=== PATIENT | female | born 1940 | race Caucasian/White ===

== ENCOUNTER 2017-06-17 10:40 | Outpatient (CLI) | payer OTHER | END 2017-06-17 10:41 | disposition home or self-care (01) | LOC: BICMAMMO 10:40 | PROVIDERS: ATTEND Family Medicine | DX: Z12.31 Encounter for screening mammogram for malignant neoplasm of breast (principal) | CPT/HCPCS: 77063; 77067 ==

== ENCOUNTER 2017-11-08 16:32 | Emergency (ER) | payer OTHER ==
[~2017-11-08 16:32] MED LIST: ISOVUE-370 76%-LOCM 1 ML ONE
--- NOTE | 2017-11-08 18:31 | CT ---
CT CHEST WITHOUT CONTRAST CT ABDOMEN WITHOUT CONTRAST CT PELVIS WITHOUT CONTRAST 11/08/17 HISTORY: Fall. COMPARISON: CT abdomen and pelvis 2011. FINDINGS: 4 mm nodule right upper lobe. There is also a 3 mm nodule in the right middle lobe in two different a reas. No pneumothorax or effusion. Some scarring in the left lower lobe. Thyroid is unremarkable. No mediastinal adenopathy. Small pretracheal 6 mm lymph node present. No pericardial effusion. Sternum and manubrium are intact. No acute displaced rib fracture. Mild pectus excavatum. There are superior end plate fractures of T11 and T12 extending to the anterior vertebral body approx imately 10% height loss of each. No extension to the posterior vertebral body is appreciated. No retr opulsion. No posterior element involvement. Visualized clavicles are intact. No transverse process of the lumbar or thoracic spine fracture. Moderate degenerative changes of the right hip. No sacral or pelvic fracture. No free fluid in the abdomen or pelvis. The right renal mass is not significantly increased in size a nd there does appear to be some internal fat. 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 Oncocytoma is also a possibility. No renal laceration. No acute splenic or liver injury nor pancreas or retroperitoneal injury. Moderate diverticular disease sigmoid colon without active current inflammation. The L4 area of sclerosis likely a bone island, unchanged. IMPRESSION: 1. Acute T11 and T12 compression fractures approximately 10-15% anterior height loss without ext ension to the posterior vertebral body nor retropulsion. Also possible anterior superior end plate fr acture of L1 although not definitive. 2. Similar appearance of the right renal mass which may have some internal fat density and has n ot increased in size to the comparison exam and likely angiomyolipoma. 3. No other acute traumatic abnormality in chest, abdomen or pelvis. 4. Small sub 4 mm pulmonary nodules are nonspecific. Code KAVEH Reyes 6:10 p.m. POS: [facility]
== END 2017-11-08 18:45 | disposition home or self-care (01) ==
LOC: ERS 16:32
DX: S22.089A Unspecified fracture of T11-T12 vertebra, initial encounter for closed fracture (principal); I48.91 Unspecified atrial fibrillation; I10 Essential (primary) hypertension; Z79.899 Other long term (current) drug therapy; W22.8XXA Striking against or struck by other objects, initial encounter
CPT/HCPCS: 71260; 74177; 82565

== ENCOUNTER 2017-12-04 10:50 | Outpatient (CLI) | payer OTHER ==
--- NOTE | 2017-12-04 12:22 | RAD ---
THORACIC SPINE THREE VIEWS: HISTORY: Follow-up fractures. CORRELATION: CT thoracolumbar spine from 11/08/2017. This exam was performed following trauma, and mild compressi on fractures were described on this exam, involving the T11 and T12 vertebrae. Mild anterior wedging and superior endplate compression were seen on this exam. FINDINGS: On today's exam, there is mild wedging of the T12 vertebra, which may have slightly progressed when c ompared to the CT of 11/08/2017, with mild loss of anterior height. Posterior alignment is preserved , and there is no retropulsion. No evidence of significant compression apparent on today's exam, at T11 or at L1. The other thoracic vertebrae maintain height. There are mild to moderate degenerative changes again noted. IMPRESSION: 1. There is anterior wedge deformity involving the T12 vertebra, which has progressed slightly since the CT of 11/08/2017. 2. Anterior height loss estimated in the 10% to 15% range. POS: [facility]
== END 2017-12-04 10:51 | disposition home or self-care (01) ==
LOC: TBSIIMAG 10:50
PROVIDERS: ATTEND Neurological Surgery
DX: S22.008A Other fracture of unspecified thoracic vertebra, initial encounter for closed fracture (principal); M43.9 Deforming dorsopathy, unspecified
CPT/HCPCS: 72072

== ENCOUNTER 2017-12-31 14:27 | Outpatient (CLI) | payer OTHER ==
--- NOTE | 2017-12-31 15:38 | RAD ---
THORACIC SPINE 3 VIEWS: Date: 12/31/17 HISTORY: 77-year-old female with S22.008A, thoracic spine fractures. COMPARISON: 12/04/17. FINDINGS: There is probably very slightly progressive vertical height loss of the anterior aspect of the T12 ve rtebral body and very slight vertical height loss of the anterior superior aspect of the T11 vertebra l body, although this appears stable. No evidence for acute or new fracture. IMPRESSION: Less than 50% vertical height fracture of anterior superior aspect of the T12 vertebral body, slightl y progressive from prior study. Very mild superior end plate depression of T11, stable. POS: [facility]
== END 2017-12-31 14:28 | disposition home or self-care (01) ==
LOC: TBSIIMAG 14:27
PROVIDERS: ATTEND Neurological Surgery
DX: S22.008A Other fracture of unspecified thoracic vertebra, initial encounter for closed fracture (principal)
CPT/HCPCS: 72072

== ENCOUNTER 2018-02-12 11:01 | Outpatient (CLI) | payer OTHER ==
--- NOTE | 2018-02-12 11:51 | RAD ---
THORACIC SPINE FRONTAL AND LATERAL IMAGIN02/12/2018 HISTORY: Fall. Compression fracture. COMPARISON: 12/31/2017 FINDINGS: The thoracic pedicles appear intact on the frontal examination. There is an anterior wedge compression fracture/superior endplate fracture of the T12 vertebral body. There has been no significant interval change in the anterior wedging, which is less than 50%. No new fracture is seen. IMPRESSION: Stable anterior wedge compression fracture/superior endplate fracture of T12. No new fracture seen. POS: [facility]
--- NOTE | 2018-02-12 13:26 | RAD ---
LUMBAR SPINE: Indications: Follow up compression fracture. Comparison: Thoracic spine films from 12-31-17. Correlation is also made to a CT of the abdomen and pe lvis of 09-23-11. FINDINGS: On the comparison, there is an anterior wedge compression deformity at T12 and is again seen. There i s compression of the superior endplate with anterior wedging. A loss of anterior height is estimated in the 10-20% range. This appears table. Lumbar vertebrae maintain normal height and alignment. There is a focal area of rounded sclerosis inv olving the L4 vertebra to the left of midline. This was noted on the CT scan of 2011 and would theref ore indicate a benign bone island. Mild degenerative changes of the lumbar spine. The disc spaces are preserved. Mild facet hypertrophy. IMPRESSION: 1. Mild degenerative changes of the lumbar spine. There is a benign bone island at L4. 2. Anterior compression at T12 appears stable. POS: [facility]
== END 2018-02-12 11:02 | disposition home or self-care (01) ==
LOC: TBSIIMAG 11:01
PROVIDERS: ATTEND Neurological Surgery
DX: S22.008A Other fracture of unspecified thoracic vertebra, initial encounter for closed fracture (principal); M47.816 Spondylosis without myelopathy or radiculopathy, lumbar region; M43.8X4 Other specified deforming dorsopathies, thoracic region
CPT/HCPCS: 72072; 72100

== ENCOUNTER 2018-05-29 14:47 | Outpatient (CLI) | payer OTHER ==
--- NOTE | 2018-05-29 15:23 | RAD ---
3 VIEWS THORACIC SPINE: Date: 05/29/18 COMPARISON: Lumbar spine radiograph dated 02/12/18. HISTORY: Low back and mid back pain. History of injury to T11 and T12. FINDINGS: Three views of the thoracic spine show wedge compression deformity of the T12 vertebral body. This is unchanged compared to the prior examination. The other thoracic vertebral bodies demonstrate normal height. No subluxation is seen. Small osteophytes are seen throughout the thoracic spine. IMPRESSION: Stable wedge fracture of T12. POS: [facility]
--- NOTE | 2018-05-29 15:25 | RAD ---
2 VIEWS LUMBOSACRAL SPINE: Date: 05/29/18 COMPARISON: 02/12/18. HISTORY: Low back and mid back pain. Previous compression fracture of T11 and T12. FINDINGS: Two views of the lumbosacral spine were performed. There is stable wedge compression deformity of the T12 vertebral body with approximately 40% height loss. There is a stable well circumscribed scleroti c lesion at the L4 vertebral body. The lumbar vertebral bodies demonstrate normal height without frac ture or subluxation. Small osteophytes are seen throughout the lumbar spine. No significant change escobar s occurred compared to the prior exam. IMPRESSION: Stable exam. POS: [facility]
== END 2018-05-29 14:48 | disposition home or self-care (01) ==
LOC: BICRAD 14:47
PROVIDERS: ATTEND Neurological Surgery
DX: M54.5 Low back pain (principal); S22.080A Wedge compression fracture of T11-T12 vertebra, initial encounter for closed fracture
CPT/HCPCS: 72070; 72100

== ENCOUNTER 2018-06-19 10:37 | Outpatient (CLI) | payer OTHER ==
--- NOTE | 2018-06-19 13:41 | MMO ---
Bilateral MAMMO Bilat Screen [facility]. CLINICAL HISTORY: Patient is 78 years old and is seen for screening. The patient has no family history of breast cancer. The patient has no personal history of cancer. VIEWS: The views performed were: bilateral craniocaudal with tomosynthesis and bilateral mediolateral oblique with tomosynthesis. FILMS COMPARED: The present examination has been compared to prior imaging studies performed at [facility] on 06/17/2017, and at [facility] on 05/19/2015 and 06/13/2016. MAMMOGRAM FINDINGS: There are scattered fibroglandular densities. There are no suspicious masses, suspicious calcifications, or new areas of architectural distortion. IMPRESSION: THERE IS NO MAMMOGRAPHIC EVIDENCE OF MALIGNANCY. A ROUTINE FOLLOW-UP MAMMOGRAM IN 1 YEAR IS RECOMMENDED. THE RESULTS OF THIS EXAM WERE SENT TO THE PATIENT. ACR BI-RADS Category 1 - Negative MAMMOGRAPHY NOTE: 1. A negative mammogram report should not delay a biopsy if a dominant of clinically suspicious mass is present. 2. Approximately 10% to 15% of breast cancers are not detected by mammography. 3. Adenosis and dense breasts may obscure an underlying neoplasm.
== END 2018-06-19 10:38 | disposition home or self-care (01) ==
LOC: BICMAMMO 10:37
PROVIDERS: ATTEND Family Medicine
DX: Z12.31 Encounter for screening mammogram for malignant neoplasm of breast (principal)
CPT/HCPCS: 77063; 77067

== ENCOUNTER 2018-11-28 07:43 | Outpatient (CLI) | payer OTHER ==
--- NOTE | 2018-11-28 10:38 | ULT ---
GALLBLADDER ULTRASOUND: HISTORY: Right upper quadrant pain. COMPARISON: A 11/08/2017 CT study. FINDINGS: Real-time imaging of the right upper quadrant shows a normal-appearing gallbladder. The common duct i s 4 mm. The liver measures 12 cm in length. This shows no focal abnormalities. The pancreas is fairly well visualized and unremarkable. The right kidney shows an irregular contour and a mass involving the mid to lower pole regions, somew hat ill-defined and of mixed echogenicity. The borders of this are difficult to define, but I would estimate it at 4.2 x 4.7 cm. It is similar to the previous CT study. IMPRESSION: 1. No evidence of gallstones. 2. Stable right renal mass. POS: [facility]
== END 2018-11-28 07:44 | disposition home or self-care (01) ==
LOC: BICULT 07:43
PROVIDERS: ATTEND Internal Medicine Cardiovascular Disease
DX: R10.11 Right upper quadrant pain (principal); N28.89 Other specified disorders of kidney and ureter
CPT/HCPCS: 76705

== ENCOUNTER 2019-02-04 11:00 | Outpatient (CLI) | payer OTHER ==
--- NOTE | 2019-02-04 12:54 | RAD ---
PA AND LATERAL CHEST: HISTORY: Cough. FINDINGS: The heart size is borderline. The aorta is tortuous. The lungs are well expanded without lobar consol idation, pneumothoraces or pleural effusions. There are degenerative changes in the spine. IMPRESSION: No acute process. POS: [facility]
== END 2019-02-04 11:01 | disposition home or self-care (01) ==
LOC: BICRAD 11:00
PROVIDERS: ATTEND Family Medicine
DX: R05 Cough (principal)
CPT/HCPCS: 36415; 71046; 80053; 80061; 82306; 85025

== ENCOUNTER 2019-09-18 10:28 | Outpatient (CLI) | payer OTHER ==
--- NOTE | 2019-09-18 11:05 | MMO ---
Bilateral MAMMO Bilat Screen [facility]. CLINICAL HISTORY: Patient is 79 years old and is seen for screening. The patient has no family history of breast cancer. The patient has no personal history of cancer. VIEWS: The views performed were: bilateral craniocaudal with tomosynthesis and bilateral mediolateral oblique with tomosynthesis. FILMS COMPARED: The present examination has been compared to prior imaging studies performed at [facility] on 06/17/2017 and 06/19/2018, and at [facility] on 05/19/2015 and 06/13/2016. This study has been interpreted with the assistance of computer-aided detection. MAMMOGRAM FINDINGS: There are scattered fibroglandular densities. There is an asymmetry seen in the CC view only seen in the inner region of the right breast. In the left breast, there are no suspicious masses, calcifications or areas of architectural distortion. IMPRESSION: ASYMMETRY IN THE RIGHT BREAST REQUIRES ADDITIONAL EVALUATION. RECOMMEND DIAGNOSTIC MAMMOGRAM. ULTRASOUND MAY ALSO PROVE USEFUL AT RECALL. THE RESULTS OF THIS EXAM WERE SENT TO THE PATIENT. ACR BI-RADS Category 0 - Incomplete: Need additional imaging evaluation. [facility] will notify the patient of the need for additional imaging services. MAMMOGRAPHY NOTE: 1. A negative mammogram report should not delay a biopsy if a dominant of clinically suspicious mass is present. 2. Approximately 10% to 15% of breast cancers are not detected by mammography. 3. Adenosis and dense breasts may obscure an underlying neoplasm. Reported by: CASPER ELISE MD Electonically Signed: [id number]
== END 2019-09-18 10:29 | disposition home or self-care (01) ==
LOC: BICMAMMO 10:28
PROVIDERS: ATTEND Family Medicine
DX: Z12.31 Encounter for screening mammogram for malignant neoplasm of breast (principal); N64.89 Other specified disorders of breast
CPT/HCPCS: 77063; 77067

== ENCOUNTER 2019-09-22 10:08 | Outpatient (CLI) | payer OTHER ==
--- NOTE | 2019-09-22 10:52 | MMO ---
Right Breast MAMMO Unilat Diag [facility]. CLINICAL HISTORY: Patient is 79 years old and is seen for additional evaluation requested from prior study. The patient has no family history of breast cancer. The patient has no personal history of cancer. VIEWS: The views performed were: right craniocaudal spot compression with tomosynthesis; right mediolateral with tomosynthesis; right rolled lateral with tomosynthesis; and right rolled medial with tomosynthesis. FILMS COMPARED: The present examination has been compared to prior imaging studies performed at [facility] on 06/17/2017, 06/19/2018, 09/18/2019 and 09/22/2019. This study has been interpreted with the assistance of computer-aided detection. MAMMOGRAM FINDINGS: There are scattered fibroglandular densities. Additional views were performed. The previously seen abnormality is not definitely seen on the current study. US is negative. There are no suspicious masses, suspicious calcifications, or new areas of architectural distortion. IMPRESSION: THERE IS NO MAMMOGRAPHIC EVIDENCE OF MALIGNANCY. A ROUTINE FOLLOW-UP MAMMOGRAM IN 1 YEAR IS RECOMMENDED. THE RESULTS OF THIS EXAM WERE SENT TO THE PATIENT. ACR BI-RADS Category 2 - Benign finding MAMMOGRAPHY NOTE: 1. A negative mammogram report should not delay a biopsy if a dominant of clinically suspicious mass is present. 2. Approximately 10% to 15% of breast cancers are not detected by mammography. 3. Adenosis and dense breasts may obscure an underlying neoplasm. Reported by: PK ANTHONY MD Electonically Signed: [id number]
--- NOTE | 2019-09-22 11:15 | ULT ---
RIGHT BREAST ULTRASOUND: Date: 09/22/2019 HISTORY: Abnormal mammogram of 09/18/2019. FINDINGS: Correlation is made with mammograms of 09/18/2019 and 09/22/2019. Sonographic evaluation of the right inner breast demonstrates no abnormality. IMPRESSION: BI-RADS Category 2 - Benign findings. Return to annual mammographic screening. POS: [facility]
== END 2019-09-22 10:09 | disposition home or self-care (01) ==
LOC: BICMAMMO 10:08
PROVIDERS: ATTEND Family Medicine
DX: R92.2 Inconclusive mammogram (principal)
CPT/HCPCS: G0279

== ENCOUNTER 2019-12-04 07:04 | Outpatient (CLI) | payer OTHER ==
--- NOTE | 2019-12-04 08:02 | ULT ---
ULTRASOUND ABDOMEN COMPLETE: DATE: 12/04/2019 HISTORY: Right upper quadrant abdominal pain in 79-year-old female FINDINGS: Gallbladder: Normal wall thickness. No gallstones or sludge identified. No pericholecystic fluid. Liver: Normal parenchymal echogenicity. Bilateral kidneys: No hydronephrosis. Lobular, heterogeneously hyperechoic mass protruding exophytica lly from lower pole of right kidney measures approximately 6 x 5.5 x 5.5 cm. This was present as far back as renal ultrasound 07/28/2009. It may have slightly grown since that time, but it is stable c ompared to 09/01/2018.. Pancreas: Nonspecific sonographic appearance. Tail obscured by shadowing from bowel gas. Common duct caliber: 4 mm. Abdominal aorta: No aneurysm Inferior vena cava: Unremarkable where visualized. 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 If there is clinical concern for hemorrhagic complication, CT should be considered. 2) no other abnormality
== END 2019-12-04 07:05 | disposition home or self-care (01) ==
LOC: BICULT 07:04
PROVIDERS: ATTEND Family Medicine
DX: R10.11 Right upper quadrant pain (principal); D17.71 Benign lipomatous neoplasm of kidney; D30.01 Benign neoplasm of right kidney
CPT/HCPCS: 93975

== ENCOUNTER 2021-04-28 08:04 | Emergency (ER) | payer BC ==
[2021-04-28 09:04] LABS: #Eosinphils 0.2 thou/uL (0.0-0.7); #Monocytes 0.7 thou/uL (0.11-0.59); #Neutrophils 6.6 thou/uL (1.40-6.50); %Basophils 0.2 % (0.0-1.0); %Eosinophils 2.2 % (0.0-10.0); %Lymphocytes 11.4 % (21.0-51.0); %Monocytes 7.7 % (0.0-10.0); %Neutrophils 78.4 % (42.0-75.0); Hemoglobin 13.5 g/dL (12.0-16.0); Mean Corpuscular HGB CONC 32.8 g/dL (32.0-36.0); Mean Corpuscular Hemoglobin 30.8 pg (27.0-31.0); Mean Corpuscular Volume 93.9 fL (78.0-98.0); Mean Platelet Volume 7.3 fL (7.4-10.4); Platelet Count 307 thou/uL (130-400); RBC Distribution Width 12.5 % (11.5-14.5); Red Blood Cell (RBC) Count 4.38 mill/uL (4.20-5.40); White Blood Cell (WBC) Count 8.4 thou/uL (4.8-10.8)
[2021-04-28 09:27] LABS: ALT (SGPT) 10 U/L (8-55); AST (SGOT) 17 U/L (5-34); Albumin 4.2 g/dL (3.4-4.8); Alkaline Phosphatase 77 U/L (40-110); Anion Gap 12 mmol/L (10-20); BUN (Urea Nitrogen) 16 mg/dL (9.8-20.1); Calc. Creatinine Clearance 0 mL/min (70-130); Calcium 9.8 mg/dL (7.8-10.44); Carbon Dioxide 22 mmol/L (23-31); Chloride 101 mmol/L (98-107); Globulin 3.2 g/dL (2.4-3.5); Glucose 103 mg/dL (83-110); Lipase 23 U/L (8-78); Potassium 4.2 mmol/L (3.5-5.1); Protein, Total 7.4 g/dL (5.8-8.1); Sodium 131 mmol/L (136-145)
[2021-04-28] MEDS ORDERED: Iopamidol-370 76% 500 ML 1 ML ONE (11:08)
[2021-04-28 13:01] LABS: Bilirubin Negative (Negative); Blood, Urine Negative (Negative); Clarity Clear (Clear); Glucose, Urine (Dipstick) Normal (Negative); Ketone, Urine Negative (Negative); Leukocyte Negative Leu/uL (Negative); Nitrite Negative (Negative); Protein, Urine (Dipstick) Negative (Neg-Trace); Specific Gravity, Urine 1.014 (1.002-1.036); Urobilinogen Normal mg/dL (Less than 2); pH, Urine 6.5 (5.0-9.0)
== END 2021-04-28 14:40 | disposition home or self-care (01) ==
LOC: ERS 08:04
DX: R10.9 Unspecified abdominal pain (principal); Z79.899 Other long term (current) drug therapy; I48.91 Unspecified atrial fibrillation; I10 Essential (primary) hypertension
CPT/HCPCS: 36415; 74177; 80053; 81003; 83690; 85025; Q9967

== ENCOUNTER 2021-09-21 11:08 | Outpatient (CLI) | payer BC | END 2021-09-21 11:09 | disposition home or self-care (01) | LOC: BICMAMMO 11:08 | PROVIDERS: ATTEND Family Medicine | DX: Z12.31 Encounter for screening mammogram for malignant neoplasm of breast (principal) | CPT/HCPCS: 77063; 77067 ==

== ENCOUNTER 2022-04-23 10:18 | Outpatient (CLI) | payer BC | END 2022-04-23 10:19 | disposition home or self-care (01) | LOC: BICMAMMO 10:18 | PROVIDERS: ATTEND Family Medicine | DX: Z13.820 Encounter for screening for osteoporosis (principal); Z78.0 Asymptomatic menopausal state; M85.88 Other specified disorders of bone density and structure, other site | CPT/HCPCS: 77080 ==

== ENCOUNTER 2022-12-31 11:22 | Outpatient (CLI) | payer BC | END 2022-12-31 11:23 | disposition home or self-care (01) | LOC: BICMAMMO 11:22 | PROVIDERS: ATTEND Family Medicine | DX: Z12.31 Encounter for screening mammogram for malignant neoplasm of breast (principal) | CPT/HCPCS: 77063; 77067 ==

== ENCOUNTER 2023-09-10 07:39 | Inpatient (IN) | payer MEDICARE, OTHER ==
[2023-09-09 10:06] VITALS: BMI 24.9
[2023-09-10] MEDS ORDERED: SUGAMMADEX SODIUM 200 MG/2 ML VIAL ONE (08:02)
[2023-09-10] MEDS ORDERED: Ondansetron PF 4 MG/2 ML Vial ONE (08:02)
[2023-09-10] MEDS ORDERED: Dexamethasone 4 mg/ml Vial ONE (08:02)
[2023-09-10] MEDS ORDERED: fentaNYL 50 mcg/mL 1 mL Vial ONE ×2 (08:03→11:16)
[2023-09-10] MEDS ORDERED: Phenylephrine 10 MG/ML VIAL ONE (08:03)
[2023-09-10] MEDS ORDERED: PROPOFOL 20 ML ONE (08:03)
[2023-09-10] MEDS ORDERED: Lidocaine 1% PF 5 ML VIAL ONE (08:03)
[2023-09-10] MEDS ORDERED: Rocuronium Bromide 10 MG/ML (10ML VIAL) ONE (08:03)
[2023-09-10] MEDS ORDERED: Heparin 10,000 UNITS/ 10 ML VIAL ONE (08:27)
[2023-09-10] MEDS ORDERED: CEFAZOLIN 2 GM VIAL ONE (08:27)
[2023-09-10] MEDS ORDERED: Protamine Sulfate 50 MG/5 ML VIAL ONE (08:27)
[2023-09-10] MEDS ORDERED: Lidocaine 1% MPF 2 ML VIAL ONE (08:35)
[2023-09-10] MEDS ORDERED: Lisinopril 10 MG TAB ONE (12:17)
[2023-09-10] MEDS ORDERED: Metoprolol Tartrate 25 MG TAB PO SCH (12:30)
[2023-09-10] MEDS ORDERED: hydrALAZINE 20 MG/ML VIAL SLOW IVP PRN (12:37)
[2023-09-10] MEDS ORDERED: Lisinopril 10 MG TAB PO SCH (12:45)
[2023-09-10] MEDS ORDERED: HYDROcodone/Acetaminophen 5/325 mg Tablet PO PRN ×2 (12:45)
[2023-09-10] MEDS ORDERED: Acetaminophen 325 MG TAB PO PRN (12:45)
[2023-09-10] MEDS ORDERED: hydrALAZINE 20 MG/ML VIAL ONE (14:18)
== END 2023-09-10 17:26 | disposition home or self-care (01) | DRG 274 ==
LOC: SURG A 07:39
PROVIDERS: ADMIT Internal Medicine Cardiovascular Disease; ATTEND Internal Medicine Cardiovascular Disease
PROC: 02L73DK Occlusion of Left Atrial Appendage with Intraluminal Device, Percutaneous Approach (ICD-10-PCS; principal; 2023-09-10)
PROC: B245ZZ4 Ultrasonography of Left Heart, Transesophageal (ICD-10-PCS; 2023-09-10)
DX: I48.0 Paroxysmal atrial fibrillation (principal); Z00.6 Encounter for examination for normal comparison and control in clinical research program; I10 Essential (primary) hypertension; E78.00 Pure hypercholesterolemia, unspecified; M19.90 Unspecified osteoarthritis, unspecified site; R29.6 Repeated falls; I47.19 Other supraventricular tachycardia; Z79.01 Long term (current) use of anticoagulants; Z88.2 Allergy status to sulfonamides; Z88.1 Allergy status to other antibiotic agents; Z98.49 Cataract extraction status, unspecified eye; Z90.710 Acquired absence of both cervix and uterus; Z98.890 Other specified postprocedural states; Z80.9 Family history of malignant neoplasm, unspecified; Z79.899 Other long term (current) drug therapy
CPT/HCPCS: 33340; 85347; 86850; 86900; 86901; 93306; 93312; C1753; C1760; C1889; C1893; C1894; J0360; J1100; J1644; J2371; J2405; J2704; J2720; J3010

== ENCOUNTER 2023-11-17 08:46 | Emergency (ER) | payer MEDICARE, OTHER ==
[2023-11-17 09:15] LABS: #Basophils 0.08 10x3/uL (0.0-0.2); %Eosinophils 3.2 % (0.0-10.0); %Lymphocytes 15.5 % (21.0-51.0); %Monocytes 9.5 % (0.0-10.0); %Neutrophils 70.4 % (42.0-75.0); Hematocrit 38.4 % (36.0-47.0); Hemoglobin 13.3 g/dL (12.0-16.0); Mean Corpuscular HGB CONC 34.6 g/dL (32.0-36.0); Mean Corpuscular Hemoglobin 29.4 pg (27.0-31.0); Mean Corpuscular Volume 84.8 fL (78.0-98.0); Mean Platelet Volume 10.1 fL (7.4-10.4); Platelet Count 310 10x3/uL (130-400); RBC Distribution Width 13.8 % (11.5-14.5); Red Blood Cell (RBC) Count 4.53 mill/uL (4.20-5.40)
[2023-11-17 09:38] LABS: PTT 25.7 sec (22.9-36.1); Prothrombin Time 13.2 sec (12.0-14.7)
[2023-11-17 09:41] LABS: ALT (SGPT) 11 U/L (8-55); AST (SGOT) 17 U/L (5-34); Albumin 3.8 g/dL (3.4-4.8); Alkaline Phosphatase 72 U/L (40-110); Anion Gap 14 mmol/L (10-20); BUN (Urea Nitrogen) 16 mg/dL (9.8-20.1); Bilirubin, Total 0.7 mg/dL (0.2-1.2); Calc. Creatinine Clearance 0 mL/min (70-130); Calcium 9.6 mg/dL (7.8-10.44); Carbon Dioxide 20 mmol/L (23-31); Chloride 108 mmol/L (98-107); Estimated GFR 52; Globulin 3.7 g/dL (2.4-3.5); Glucose 116 mg/dL (83-110); Potassium 4.5 mmol/L (3.5-5.1); Protein, Total 7.5 g/dL (5.8-8.1); Sodium 137 mmol/L (136-145)
== END 2023-11-17 13:51 | disposition home or self-care (01) ==
LOC: ERS 08:46
DX: K62.5 Hemorrhage of anus and rectum (principal); R07.81 Pleurodynia; I10 Essential (primary) hypertension; I48.91 Unspecified atrial fibrillation; Z79.899 Other long term (current) drug therapy
CPT/HCPCS: 80053; 85025; 85610; 85730; 86850; 86900; 86901; 99283